=== PATIENT | female | born 1975 | race Caucasian/White ===

== ENCOUNTER 2022-05-18 06:28 | Observation (INO) | payer BC, OTHER ==
[2022-05-16 14:50] LABS: BASOPHILS # (AUTO) 0.1 (0.0-0.1); BASOPHILS % 1.5 % (0.0-1.0); EOSINOPHILS # (AUTO) 0.5 (0.0-0.4); EOSINOPHILS % 5.8 % (0.0-6.0); HEMATOCRIT 40.5 % (34.2-44.1); LYMPHOCYTES # (AUTO) 3.1 (1.0-3.2); LYMPHOCYTES % 38.9 % (18.0-39.1); MEAN CORPUSCULAR HEMOGLOBIN 30.2 pg (28-32); MEAN CORPUSCULAR HGB CONC 32.1 g/dL (31-35); MONOCYTES # (AUTO) 0.8 (0.2-0.8); MONOCYTES % 10.5 % (4.4-11.3); NEUTROPHILS # (AUTO) 3.4 (2.1-6.9); NEUTROPHILS % 43.2 % (38.7-80.0); PLATELET COUNT 274 x10e3/uL (140-360); RED BLOOD COUNT 4.31 x10e6/uL (3.6-5.1); RED CELL DISTRIBUTION WIDTH 15.3 % (11.7-14.4)
[2022-05-16 15:35] LABS: ANION GAP 12.4 mmol/L (8-16); CALCIUM 8.4 mg/dL (8.4-10.2); CREATININE, SERUM 0.69 mg/dL (0.57-1.11); POTASSIUM 4.4 mmol/L (3.5-5.1)
[2022-05-16 16:16] LABS: INR 0.93; PROTHROMBIN TIME 13.3 seconds (11.9-14.5)
[~2022-05-18] VITALS: Ht 170.2 cm; Wt 81.6 kg
[~2022-05-18 06:28] MED LIST: AIMOVIG AU140 MG/1 M IM; BIOTE IM; BIOTIN2500 MCG PO; DIM PO; INTRAROSA6.5 MG VG; KESIMPTA P20 MG/0.4 PO; LYRICA50 MG PO; MULTIVITAMINS1 EAC4 PO; MYRBETRIQ50 MG PO; NP THYROID60 MG PO; NUEDEXTA 20-101 EACH PO; NUVIGIL150 MG PO; PROGESTERONE200 MG PO; TIZANIDINE HCL4 M1 PO; ULTRAM50 MG PO; VITAMIN C 500500 MG PO; VITAMIN D3125 MCG/1 PO; VITAMIN E400 UNI1 PO; ZYRTEC10 M3 PO
[2022-05-18] MEDS ORDERED: Vancomycin IV 1 GM VIAL ONE (06:37)
[2022-05-18] MEDS ORDERED: THROMBIN FOR SOLN 5,000 UNIT VIAL ONE (06:37)
[2022-05-18] MEDS ORDERED: LIDOCAINE 1% W/EPINEPHRINE 20 ML VIAL ONE (06:37)
[2022-05-18] MEDS ORDERED: HYDROCODON-ACE1 EA12 PO (10:10)
[2022-05-18] MEDS ORDERED: ACETAMINOPHEN 325 MG TAB PO PRN (10:15)
[2022-05-18] MEDS ORDERED: MAGNESIUM/ALUMINUM/SIMETHICONE 30 ML UDC PO PRN (10:15)
[2022-05-18] MEDS ORDERED: MORPHINE SULFATE 5 MG/ML VIAL IM PRN (10:15)
[2022-05-18] MEDS ORDERED: CEPACOL SORE THROAT LOZENGES PO PRN (10:15)
[2022-05-18] MEDS ORDERED: PROMETHAZINE HCL (IM) 25 MG/ML VIAL IM PRN (10:15)
[2022-05-18] MEDS ORDERED: ZOLPIDEM TARTRATE 5 MG TAB PO PRN (10:15)
[2022-05-18] MEDS ORDERED: TRAMADOL HCL 50 MG TAB PO PRN (10:15)
[2022-05-18] MEDS ORDERED: FENTANYL CITRATE/PF 100MCG/2 ML INJ ONE ×2 (10:26→12:34)
[2022-05-18] MEDS ORDERED: Morphine 4mg INJECTION 4 MG/ML INJ ONE (10:47)
[2022-05-18 11:15] VITALS: BP 112/76
[2022-05-18 11:25] VITALS: BP 112/76
[2022-05-18] MEDS ORDERED: DEXAMETHASONE SOD PHOS INJ 4 MG/ML SDV ONE (11:52)
[2022-05-18] MEDS ORDERED: ONDANSETRON HCL INJ 2MG/ML 2ML 2 MG/ML VIAL ONE (11:52)
[2022-05-18] MEDS ORDERED: GLYCOPYRROLATE INJ 0.2 MG/ML VIAL ONE (11:52)
[2022-05-18] MEDS ORDERED: SEVOFLURANE INHAL SOLN 250 ML PEN BTL ONE (11:52)
[2022-05-18] MEDS ORDERED: ROCURONIUM BROMIDE 10 MG/ML 5ML VIAL IV ONE (11:52)
[2022-05-18] MEDS ORDERED: PROPOFOL IV EMULSION 10 MG/ML 20 ML VIAL ONE (11:52)
[2022-05-18] MEDS ORDERED: POVIDONE IODINE 0.05% 0.05 % ML PO ONE (11:52)
[2022-05-18] MEDS ORDERED: IBUPROFEN 800 MG/200 ML BAG IV ONE (11:52)
[2022-05-18] MEDS ORDERED: LIDOCAINE HCL (LTA) 4 ML SOLN ONE (11:52)
[2022-05-18] MEDS ORDERED: LIDOCAINE HCL 2% LOCAL INJ 5 ML SDV VIAL INJ ONE (11:52)
[2022-05-18] MEDS ORDERED: ACETAMINOPHEN 1000 MG/100 ML IV ONE (11:52)
[2022-05-18] MEDS ORDERED: NEOSTIGMINE 1 MG/ML 10ML VIAL ONE (11:52)
[2022-05-18] MEDS ORDERED: MIDAZOLAM HCL 2 MG/2 ML VIAL ONE (12:34)
[2022-05-18] MEDS: PREGABALIN 50 MG CAP PO SCH ×2 (15:00→21:20)
[2022-05-18] MEDS: LACTATED RINGER'S 1,000 ML IV SCH ×2 (15:15→22:17)
[2022-05-18] MEDS: OXYCODONE/ACETAMINOPHEN 5-325 1 EACH TABLET PO PRN (15:15)
[2022-05-18 16:00] VITALS: BP 106/62
[2022-05-18] MEDS: TIZANIDINE HCL 4 MG TAB PO SCH (17:00)
[2022-05-18] MEDS: ONDANSETRON HCL INJ 2MG/ML 2ML 2 MG/ML VIAL IV PRN ×2 (17:45→21:30)
[2022-05-18] MEDS: HYDROMORPHONE 2MG/ML 2 MG/ML ML IV PRN ×2 (17:45→21:30)
[2022-05-18 20:00] VITALS: BP 97/65
[2022-05-18] MEDS ORDERED: PRASTERONE VG SCH (21:00)
[2022-05-18] MEDS ORDERED: (Progesterone,Micronized (Progesterone) 200 MG) PO SCH (21:00)
[2022-05-18] MEDS: CARISOPRODOL 350 MG TAB PO PRN (21:30)
[2022-05-19] VITALS: BP 96/63
[2022-05-19] MEDS: HYDROMORPHONE 2MG/ML 2 MG/ML ML IV PRN (01:40)
[2022-05-19] MEDS: ONDANSETRON HCL INJ 2MG/ML 2ML 2 MG/ML VIAL IV PRN (02:08)
[2022-05-19] MEDS: CARISOPRODOL 350 MG TAB PO PRN ×2 (02:41→06:00)
[2022-05-19] MEDS: LACTATED RINGER'S 1,000 ML IV SCH (02:55)
[2022-05-19 04:00] VITALS: BP 99/62
[2022-05-19] MEDS: OXYCODONE/ACETAMINOPHEN 5-325 1 EACH TABLET PO PRN ×2 (06:00→12:27)
[2022-05-19] MEDS ORDERED: THYROID 60 MG TAB PO SCH (06:00)
[2022-05-19 08:00] VITALS: BP 99/62
[2022-05-19 08:10] VITALS: BP 99/62
[2022-05-19] MEDS: PREGABALIN 50 MG CAP PO SCH (09:00)
[2022-05-19] MEDS ORDERED: ASCORBIC ACID 500 MG TAB PO SCH (09:00)
[2022-05-19] MEDS: TIZANIDINE HCL 4 MG TAB PO SCH (09:00)
[2022-05-19] MEDS ORDERED: VITAMIN E 400 UNIT CAP PO SCH (09:00)
[2022-05-19] MEDS ORDERED: ARMODAFINIL 150 MG TAB PO SCH (09:00)
[2022-05-19] MEDS ORDERED: ASCORBATE SODIUM PO SCH (09:00)
[2022-05-19] MEDS ORDERED: MULTIVITAMINS/MINERALS TAB PO SCH (09:00)
[2022-05-19] MEDS ORDERED: LORATADINE 10 MG TAB PO SCH (09:00)
[2022-05-19] MEDS ORDERED: DIM PO SCH (09:00)
[2022-05-19] MEDS ORDERED: [UNRECOGNIZED DRUG - OTHER] PO SCH (09:00)
[2022-05-19] MEDS ORDERED: (Mirabegron (Myrbetriq) 50 MG) PO SCH (09:00)
[2022-05-19] MEDS ORDERED: ASCORBIC ACID PO SCH (09:00)
[2022-05-19 12:35] VITALS: BP 111/71
== END 2022-05-19 12:45 | disposition home or self-care (01) ==
LOC: OR 06:28 → PACU V 10:05 → MED/SURG 11:43
PROVIDERS: ADMIT Neurological Surgery; ATTEND Neurological Surgery
DX: M48.062 Spinal stenosis, lumbar region with neurogenic claudication (principal); Z01.810 Encounter for preprocedural cardiovascular examination; Z01.812 Encounter for preprocedural laboratory examination; Z01.818 Encounter for other preprocedural examination; Z20.822 Contact with and (suspected) exposure to COVID-19
CPT/HCPCS: 36415; 63047; 63048; 71046; 72020; 80048; 81025; 85025; 85610; 85730; 86850; 86900; 88304; 88311; 93005; G0378 ×2; J0131; J0690 ×2; J1100; J1170 ×2; J2001; J2250; J2270; J2405 ×2; J2550; J2704; J2710; J3010; J3370; J7121 ×2; U0002

== ENCOUNTER 2022-06-21 16:00 | Outpatient (RCR) | payer BC ==
[~2022-06-21 16:00] MED LIST changes: +HYDROCODON-ACE1 EA12 PO
== END 2022-07-01 ==
LOC: PT 16:00
PROVIDERS: ATTEND Neurological Surgery
DX: M48.061 Spinal stenosis, lumbar region without neurogenic claudication (principal)

== ENCOUNTER 2022-07-31 15:51 | Outpatient (RCR) | payer BC | END 2022-08-01 | LOC: PT 15:51 | PROVIDERS: ATTEND Neurological Surgery | DX: M48.062 Spinal stenosis, lumbar region with neurogenic claudication (principal) ==

== ENCOUNTER 2022-08-02 07:16 | Outpatient (RCR) | payer BC | END 2022-08-31 | LOC: PT 07:16 | PROVIDERS: ATTEND Neurological Surgery | DX: M48.062 Spinal stenosis, lumbar region with neurogenic claudication (principal) ==